=== PATIENT | female | born 1970 | race Caucasian/White ===

== ENCOUNTER 2018-11-08 14:19 | Emergency (ER) | payer OTHER ==
[~2018-11-08] VITALS: Ht 162.6 cm; Wt 59.0 kg
== END 2018-11-08 18:54 | disposition home or self-care (01) ==
LOC: ER 14:19
DX: B34.9 Viral infection, unspecified (principal)

== ENCOUNTER 2021-11-29 15:33 | Emergency (ER) | payer OTHER ==
[~2021-11-29] VITALS: Ht 162.6 cm; Wt 59.0 kg
[2021-11-29] MEDS ORDERED: BENZONATATE200 M1 PO (19:05)
== END 2021-11-29 19:12 | disposition home or self-care (01) ==
LOC: ER 15:33
DX: R05.9 Cough, unspecified (principal); Z20.822 Contact with and (suspected) exposure to COVID-19

== ENCOUNTER 2021-12-30 15:30 | Outpatient (CLI) | payer OTHER ==
[~2021-12-30 15:30] MED LIST: BENZONATATE200 M1 PO
== END 2021-12-30 15:40 | disposition home or self-care (01) ==
LOC: RAD 15:30
PROVIDERS: ATTEND Specialist
DX: M19.041 Primary osteoarthritis, right hand (principal); M19.042 Primary osteoarthritis, left hand

== ENCOUNTER 2024-04-05 12:30 | Outpatient (CLI) | payer OTHER | END 2024-04-05 12:34 | disposition home or self-care (01) | LOC: MAMO-SONO 12:30 | PROVIDERS: ATTEND Obstetrics & Gynecology | DX: N60.11 Diffuse cystic mastopathy of right breast (principal); N60.12 Diffuse cystic mastopathy of left breast; R13.10 Dysphagia, unspecified; R05.9 Cough, unspecified; R05.1 Acute cough ==

== ENCOUNTER 2024-04-05 14:14 | Outpatient (CLI) | payer OTHER | END 2024-04-05 14:15 | disposition home or self-care (01) | LOC: NUCLEAR 14:14 | PROVIDERS: ATTEND Obstetrics & Gynecology | DX: M81.0 Age-related osteoporosis without current pathological fracture (principal) ==

== ENCOUNTER 2024-10-28 01:01 | Emergency (ER) | payer OTHER ==
[~2024-10-28] VITALS: Ht 162.6 cm; Wt 59.0 kg
[2024-10-28] MEDS ORDERED: PROMETHAZINE HCL 50 MG/ML AMPUL IM STA (03:02)
[2024-10-28 03:46] LABS: HEMATOCRIT 40.5 % (36.0-45.00); HEMOGLOBIN 13.6 g/dL (12.0-15.00); MEAN CELL VOLUME 83.5 fL (80.00-100.00); MEAN CORPUSCULAR HGB CONC 33.5 g/dl (32.0-36.0); PLATELET COUNT 282 K/uL (150-450); RED BLOOD COUNT 4.85 M/uL (4.00-6.00); RED CELL DISTRIBUTION WIDTH 13.3 % (11.5-14.5)
[2024-10-28 03:58] LABS: CALCIUM 9.8 mg/dL (8.5-10.1); CREATININE SERUM 0.76 mg/dL (0.55-1.02); GFR 79.01; POTASSIUM 3.78 mEq/L (3.5-5.1)
[2024-10-28 05:23] LABS: PH,URINE 6.5 (5.0-8.0); URINE APPEARANCE Clear; URINE BILIRRUBIN Negative (NEGATIVE); URINE BLOOD Negative; URINE COLOR Yellow; URINE GLUCOSE Negative (NEGATIVE); URINE KETONE Negative (NEGATIVE); URINE LEUKOCYTE Negative; URINE NITRATE Negative; URINE PROTEIN Negative (NEGATIVE); URINE UROBILINOGEN 0.2 E.U./dl
[2024-10-28 05:28] LABS: URINE BACTERIA 2538.4 uL (0.0-1933); URINE EPITHELIAL CELLS 24.3 uL (0.0-38.8); URINE RBC 2.3 uL (0.0-20.8); URINE WBC 39.8 uL (0.0-23.2)
[2024-10-28 05:30] LABS: URINE CAST 0.44 uL (0.0-1.40)
[2024-10-28] MEDS ORDERED: MECLIZINE HCL 25 MG TABLET PO STA (06:15)
[2024-10-28] MEDS ORDERED: HYDROCHLOROTHIA25 MG PO ×2 (07:42→07:43)
[2024-10-28] MEDS ORDERED: MEDI-MECLIZINE25 MG PO (07:42)
== END 2024-10-28 08:34 ==
LOC: ER 01:02
PROVIDERS: General Practice
DX: R42 Dizziness and giddiness (principal); I10 Essential (primary) hypertension; Z88.4 Allergy status to anesthetic agent